=== PATIENT | male | born 1955 | race Caucasian/White ===

== ENCOUNTER → 2018-11-06 | Outpatient (CLI) | payer MEDICARE, BC | END | disposition home or self-care (01) | LOC: RAD 12:45 | PROVIDERS: ATTEND Nurse Practitioner | DX: R06.02 Shortness of breath (principal); J98.6 Disorders of diaphragm; G83.89 Other specified paralytic syndromes; J18.9 Pneumonia, unspecified organism | CPT/HCPCS: 76000; 94060; 94618; 94726; 94729 ==